=== PATIENT | male | born 1940 | race Caucasian/White ===

== ENCOUNTER → 2018-09-06 | Day surgery (SDC) | payer MEDICARE, OTHER ==
[~2018-09-06] MED LIST: AMLODIPINE BESYL5 MG PO; ARICEPT5 MG PO; BAYER ADVANCED500 MG PO; FENTANYL CITRATE/PF 100MCG/2 ML INJ ONE; FINASTERIDE5 MG PO; FLOMAX0.4 MG PO; GLYCOPYRROLATE INJ 1MG/ 5 ML SYR ONE; LOSARTAN-HCTZ1 EAC2 PO; MIDAZOLAM HCL 2 MG/2 ML VIAL ONE; OR PHACO EYE KIT ONE; PREOP PHACO EYE KIT ONE
[2018-09-06 13:30] VITALS: BP 137/89
--- NOTE | 2018-09-07 01:04 | Operative Report ---
DATE OF PROCEDURE: 09/06/2018 SURGEON: Riley Ceballos MD PREOPERATIVE DIAGNOSES: 1. Dense white cataract of the right eye. 2. Poor dilation, right eye. POSTOPERATIVE DIAGNOSES: 1. Dense white cataract of the right eye. 2. Poor dilation, right eye. PROCEDURE: Complicated phacoemulsification with posterior chamber intraocular lens. ANESTHESIA: MAC. COMPLICATIONS: None. LENS: Syed SN60WF 21.5 diopter lens. DESCRIPTION OF PROCEDURE: The patient was taken to the operating room, where he had a tetracaine 0.5% drops placed in the eye. The patient's eye was then prepped and draped in usual sterile ophthalmic way. A lid speculum was placed in the eye and a sideport incision was made. A 0.2 mL of 1% lidocaine preservative free was injected in the anterior chamber. An air bubble was injected in the anterior chamber and Trypan blue dye was used to stain the cataract and the anterior capsule secondary to a white cataract. BSS solution was used to irrigate this out. Viscoelastic was placed in the anterior chamber and a keratome was used to make a temporal clear corneal incision. Secondary to poor dilation, Malyugin ring was used to dilate the pupil. A cystotome and Utrata forceps were used to create anterior capsulorrhexis without any complications. Hydrodissection and hydrodelineation were then performed. Phacoemulsification probe was placed into the eye and the nucleus was phacoemulsified using the divide and conquer technique. Irrigation aspiration handpiece was then used to remove any residual cortical material. Viscoelastic was placed in the capsular bag and an Syed SN60WF 21.5 lens was placed in the bag without any complication. Irrigation aspiration handpiece was used to remove any residual viscoelastic material from within the eye. Miostat was injected into the anterior chamber. The wound was checked to make sure there was no evidence of leakage. Two drops of Vigamox were placed in the eye. Once this was done, the patient had Maxitrol ointment and a patch and Perez shield placed in the eye. The patient tolerated the procedure well and was taken to the recovery room in good condition. The patient will be seen in my office tomorrow. Riley Ceballos MD SES/MODL /[id number]
== END | disposition home or self-care (01) ==
LOC: OR 09:12
PROVIDERS: ATTEND Ophthalmology
DX: H25.11 Age-related nuclear cataract, right eye (principal); H57.09 Other anomalies of pupillary function; I25.2 Old myocardial infarction; I25.10 Atherosclerotic heart disease of native coronary artery without angina pectoris; N20.0 Calculus of kidney; N40.0 Benign prostatic hyperplasia without lower urinary tract symptoms; E78.5 Hyperlipidemia, unspecified; I12.9 Hypertensive chronic kidney disease with stage 1 through stage 4 chronic kidney disease, or unspecified chronic kidney disease; N18.9 Chronic kidney disease, unspecified; G30.9 Alzheimer's disease, unspecified; F02.80 Dementia in other diseases classified elsewhere, unspecified severity, without behavioral disturbance, psychotic disturbance, mood disturbance, and anxiety; Z79.82 Long term (current) use of aspirin; Z95.5 Presence of coronary angioplasty implant and graft; Z86.73 Personal history of transient ischemic attack (TIA), and cerebral infarction without residual deficits
CPT/HCPCS: 66982; J2250; J3490; V2632

== ENCOUNTER 2018-12-10 11:39 | Emergency (ER) | payer MEDICARE, OTHER ==
[~2018-12-10] VITALS: Ht 175.3 cm; Wt 77.1 kg
[~2018-12-10 11:39] MED LIST changes: -FENTANYL CITRATE/PF 100MCG/2 ML INJ ONE; -GLYCOPYRROLATE INJ 1MG/ 5 ML SYR ONE; -MIDAZOLAM HCL 2 MG/2 ML VIAL ONE; -OR PHACO EYE KIT ONE; -PREOP PHACO EYE KIT ONE
[2018-12-10] MEDS ORDERED: KETOROLAC TROMETHAMINE 10 MG TAB PO NR (12:00)
[2018-12-10] MEDS ORDERED: CYCLOBENZAPRINE HCL 10 MG TAB PO NR (12:00)
--- NOTE | 2018-12-10 12:03 | NUR ---
1200- Patient given Toradol 10mg PO and Flexiril 10mg PO. Tolerated well. Will reassess in 20 min
[2018-12-10 12:53] LABS: BILIRUBIN,URINE NEGATIVE (NEGATIVE); CLARITY,URINE CLEAR (CLEAR); COLOR,URINE YELLOW (YELLOW); KETONES,URINE NEGATIVE (NEGATIVE); LEUKOCYTE ESTERASE ,URINE TRACE (NEGATIVE); NITRITE,URINE NEGATIVE (NEGATIVE); PROTEIN,URINE DIPSTICK TRACE (NEGATIVE); URINE UROBILINOGEN 1 mg/dL (0.2 - 1)
[2018-12-10 13:03] LABS: BACTERIA,URINE FEW /HPF; EPITHELIAL CELLS,URINE FEW /LPF
== END 2018-12-10 14:02 | disposition home or self-care (01) ==
LOC: ER 11:39
DX: S39.012A Strain of muscle, fascia and tendon of lower back, initial encounter (principal); X50.0XXA Overexertion from strenuous movement or load, initial encounter; Y93.F2 Activity, caregiving, lifting; Y92.008 Other place in unspecified non-institutional (private) residence as the place of occurrence of the external cause; N30.91 Cystitis, unspecified with hematuria; I10 Essential (primary) hypertension
CPT/HCPCS: 81001; 99283

== ENCOUNTER 2019-07-12 17:38 | Emergency (ER) | payer MEDICARE, OTHER ==
[~2019-07-12] VITALS: Ht 175.3 cm; Wt 77.1 kg
--- OUTSIDE RECORDS SUMMARY | 2019-07-12 17:40 | XMS REPORT ---
[facility] Address Unknown Phone Unavailable Care Team Providers Care Spark Tester Name Role Phone Cindy SEVILLA MD PP Payers Payer Name Policy Type Policy Number Effective Date Expiration Date [employer] [id number] 2018 00:00:00 Medicare A & B [id number] 2006 00:00:00 Problems This patient has no known problems. Allergies, Adverse Reactions, Alerts This patient has no known allergies or adverse reactions. Medications Ordered Medication Name Filled Medication Name Start Date Stop Date Current Medication? Ordering Clinician Indication Dosage Frequency Signature (SIG) Comments Components Amlodipine Besylate 5 Mg Tablet Amlodipine Besylate 5 Mg Tablet Yes 2.5 Daily Aspirin (Isreal Advanced) 500 Mg Tablet Aspirin (Isreal Advanced) 500 Mg Tablet Yes 81 Daily Donepezil Hcl (Aricept) 5 Mg Tablet Donepezil Hcl (Aricept) 5 Mg Tablet Yes 10 Bedtime Finasteride 5 Mg Tablet Finasteride 5 Mg Tablet Yes 5 Daily Losartan/Hydrochlorothiazide (Losartan-Hctz 100-12.5 Mg Tab) 1 Each Tablet Losartan/Hydrochlorothiazide (Losartan-Hctz 100-12.5 Mg Tab) 1 Each Tablet Yes Daily Tamsulosin Hcl (Flomax*) 0.4 Mg Cap Tamsulosin Hcl (Flomax*) 0.4 Mg Cap Yes .4 Daily Procedures and Interventions Procedure Date / Time Performed Performing Clinician [facility] 2018-09-06 00:00:00 BEN AARON Encounters Start Date/Time End Date/Time Encounter Type Admission Type Attending Clinicians Care Facility Care Department Encounter ID 2018-12-10 11:39:00 2018-12-10 11:39:00 Registered Emergency Room [facility] [id number] 2018-09-06 09:12:00 2018-09-06 09:12:00 Registered Surgical Day Care [facility] [id number] Results Test Description Test Time Test Comments Text Results Atomic Results Result Comments Urine WBC 2018-12-10 13:03:00 Urine WBC (test sagt=1860-4) 6-10 0-5 Urine [id number] 13:03:00* Test Item Value Reference Range Comments Urine RBC (test nndb=49269-1) 6-10 0-5 Urine Gnffaiwj4392-06-04 13:03:00* Test Item Value Reference Range Comments Urine Bacteria (test edhc=94521-4) FEW NONE Urine Epithelial [id number] 13:03:00* Test Item Value Reference Range Comments Urine Epithelial Cells (test iyzn=64606-9) FEW NONE Urine [id number] 12:56:00* Test Item Value Reference Range Comments Urine Color (test htbg=5957-8) YELLOW YELLOW Urine Rkmaeby7224-38-08 12:56:00* Test Item Value Reference Range Comments Urine Clarity (test xzpr=06673-0) CLEAR CLEAR Urine Specific [id number] 12:56:00* Test Item Value Reference Range Comments Urine Specific Maple (test lzsb=3513-7) >=1.030 1.010-1.025 Urine [id number] 12:56:00* Test Item Value Reference Range Comments Urine pH (test zjfz=73885-9) 6 5-7 Urine Leukocyte Hmogvvdi9201-70-77 12:56:00* Test Item Value Reference Range Comments Urine Leukocyte Esterase (test gcxd=69974-4) TRACE NEGATIVE Urine Rarwmrv7256-21-09 12:56:00* Test Item Value Reference Range Comments Urine Nitrite (test hxef=44152-6) NEGATIVE NEGATIVE Urine [id number] 12:56:00* Test Item Value Reference Range Comments Urine Protein (test ogvi=58894-2) TRACE NEGATIVE Urine Glucose (UA)2018-12-10 12:56:00* Test Item Value Reference Range Comments Urine Glucose (UA) (test panv=11058-3) NEGATIVE NEGATIVE Urine Ymsslqu7081-39-41 12:56:00* Test Item Value Reference Range Comments Urine Ketones (test ywgq=49188-9) NEGATIVE NEGATIVE Urine Aqbguibfovkm1527-24-01 12:56:00* Test Item Value Reference Range Comments Urine Urobilinogen (test xpzw=09814-2) 1 0.2-1 Urine Hvwvtsief5539-77-84 12:56:00* Test Item Value Reference Range Comments Urine Bilirubin (test zrej=6933-6) NEGATIVE NEGATIVE Urine Nghvi4229-03-02 12:56:00* Test Item Value Reference Range Comments Urine Blood (test otpd=72844-8) 1+ NEGATIVE
[2019-07-12] MEDS ORDERED: NEOMYCIN/POLYMYX/BACITR OINT 0.9 GM PKT TOP ONE (17:45)
[2019-07-12] MEDS ORDERED: TETANUS/DIPHTHERIA TOX ADULT 0.5 ML SYR IM ONE (17:45)
[2019-07-12] MEDS ORDERED: LIDOCAINE HCL 1% LOCAL INJ 20 ML VIAL INJ ONE (17:45)
--- NOTE | 2019-07-12 18:50 | Diagnostic Imaging Report ---
Bilateral knees - 3 view(s) each HISTORY: Pain COMPARISON: None available. FINDINGS: Right: No displaced fracture. The osseous alignment is within normal limits. The joint spaces are well-maintained. Left: No displaced fracture. The osseous alignment is within normal limits. The joint spaces are well-maintained. Vascular calcifications. IMPRESSION: No acute radiographic abnormality. Signed by: Dr. Kenneth Cabral MD on 07/12/2019 6:47 PM
--- NOTE | 2019-07-12 18:53 | NUR ---
called son to sit with client
[2019-07-12] MEDS ORDERED: ATORVASTATIN CA10 MG PO (19:05)
--- NOTE | 2019-07-12 19:05 | NUR ---
REPORT GIVEN TO ROJAS MATHIS
--- NOTE | 2019-07-12 19:16 | Diagnostic Imaging Report ---
CT BRAIN WO HISTORY: Trauma COMPARISON: None. Technique: Noncontrast axial scans were obtained from skull base to the vertex. Coronal and sagittal reconstructions obtained from the axial data. One or more of the following dose reduction techniques were used: Automated exposure control, adjustment of the mA and/or kV according to patient size, and/or utilization of iterative reconstruction technique. Beam hardening artifacts obscure some details. DISCUSSION: Scalp/Skull: Left frontal scalp laceration. No calvarial fracture. Brain sulci: Mildly prominent. Ventricles: Compensatory dilatation. Extra-axial spaces: No masses or fluid collections. Carotid siphon calcifications are present. Parenchyma: Mild bilateral deep white matter hypodensity is likely chronic microvascular ischemic change. Otherwise, no masses, hemorrhage, or large vascular territory acute infarct. Dural sinuses: No abnormal densities. Sellar/Suprasellar region: Intact. Skull base: Intact. Incidental findings: Bilateral ocular lens replacement. IMPRESSION: 1. No acute intracranial abnormalities. 2. Mild supratentorial chronic microvascular ischemic change. Generalized cerebral volume loss. Signed by: Dr. Delbert Benton M.D. on 07/12/2019 7:13 PM
--- NOTE | 2019-07-12 19:22 | Diagnostic Imaging Report ---
CT CERVICAL SPINE WO HISTORY: Trauma COMPARISON: None. TECHNIQUE: CT of the cervical spine without contrast. Sagittal and coronal reformations were created. One or more of the following dose reduction techniques were used: Automated exposure control, adjustment of the mA and/or kV according to patient size, and/or utilization of iterative reconstruction technique. FINDINGS: Mild bone demineralization limits evaluation. Cervical lordosis is straightened. There is no significant scoliosis. No definite acute fracture or compression deformity is seen. The craniocervical junction is intact. No gross spinal canal masses are seen. The paravertebral and paraspinal soft tissues are unremarkable. Multilevel advanced spondylotic changes and facet arthrosis are present. There is associated grade 1 anterolisthesis of C2 on C3 and C7 on T1. Multilevel canal stenoses due to posterior disc osteophyte complexes and ligamentum flavum thickening are present - at least moderate at C4-C5. Multilevel bilateral moderate to severe foraminal stenoses due to uncovertebral and facet arthrosis are also present. Mild to moderate atlantoaxial arthrosis is also seen. Small hyperdensities adjacent to the left thyroid gland may be surgical clips. IMPRESSION: No acute osseous abnormalities. Multilevel advanced degenerative changes. Signed by: Dr. Delbert Benton M.D. on 07/12/2019 7:18 PM
[2019-07-12 19:38] VITALS: BP 137/73
[2019-07-12] MEDS ORDERED: BACITRACIN ZINC 0.9GM TP ONE (19:57)
== END 2019-07-12 19:50 | disposition home or self-care (01) ==
LOC: ER 17:38
DX: S01.81XA Laceration without foreign body of other part of head, initial encounter (principal); S80.212A Abrasion, left knee, initial encounter; S80.211A Abrasion, right knee, initial encounter; W01.0XXA Fall on same level from slipping, tripping and stumbling without subsequent striking against object, initial encounter; Y93.01 Activity, walking, marching and hiking; Y92.008 Other place in unspecified non-institutional (private) residence as the place of occurrence of the external cause; I10 Essential (primary) hypertension; N28.9 Disorder of kidney and ureter, unspecified; I25.2 Old myocardial infarction; Z95.5 Presence of coronary angioplasty implant and graft
CPT/HCPCS: 12013; 70450; 72125; 73562; 90471; 90714; 99284; J2001